=== PATIENT | female | born 1960 | race Caucasian/White ===

== ENCOUNTER 2023-07-05 13:51 | Emergency (ER) | payer OTHER ==
[~2023-07-05] VITALS: Ht 154.9 cm; Wt 84.0 kg
[2023-07-05] MEDS ORDERED: IPRATROPIUM/ALBUTEROL 0.5-3(2.5)MG/3ML NEB HHN ONE (15:30)
[2023-07-05] MEDS ORDERED: DEXAMETHASONE 2MG TABLET PO ONE (15:30)
[2023-07-05] MEDS ORDERED: DEXAMETHASONE 4MG TABLET PO NR (16:45)
[2023-07-05 16:46] VITALS: PULSE 96; RESP 18; O2SAT 94
[2023-07-05] MEDS ORDERED: DOXY100T28 PO (17:58)
[2023-07-05] MEDS ORDERED: P20 PO (17:59)
[2023-07-05] MEDS ORDERED: NAPR-679 PO (17:59)
[2023-07-05] MEDS ORDERED: ALBU18HF2 IH (17:59)
[2023-07-05 18:43] VITALS: BP 152/87; PULSE 87; RESP 17; TEMP 98.1
== END 2023-07-05 18:53 | disposition home or self-care (01) ==
LOC: ER 14:33
DX: J45.901 Unspecified asthma with (acute) exacerbation (principal); Z88.0 Allergy status to penicillin; Z98.890 Other specified postprocedural states
CPT/HCPCS: 71046; 94640; 99283; J8540; Z7610 ×4